=== PATIENT | male | born 1960 | race Caucasian/White ===

== ENCOUNTER 2017-06-22 13:11 | Emergency (ER) | payer SELFPAY ==
[2017-06-22 13:18] VITALS: BP 129/84; PULSE 92; RESP 18; TEMP 98.2; O2SAT 98
--- NOTE | 2017-06-22 14:09 | EDPHY ---
H & P Time Seen by Provider: 06/22/17 13:37 HPI/ROS: CHIEF COMPLAINT: Back pain HISTORY OF PRESENT ILLNESS: 56-year-old male presents to the emergency department the with history of chronic back pain is requesting prescription for prednisone. The patient states that he develops flare-ups of pain "2 or 3 times a year and "and is requesting prednisone. Patient was on prednisone about 4 months ago. He denies any numbness or tingling or feelings of weakness in his lower legs. No urinary symptoms. No chest pain or difficulty breathing. No headache. No known injury or trauma. REVIEW OF SYSTEMS: Constitutional: No fever, no chills. Eyes: No double or blurry vision. ENT: No sore throat. Respiratory: No cough, no shortness of breath. Cardiac: No chest pain. Gastrointestinal: No abdominal pain, vomiting or diarrhea. Genitourinary: No dysuria. Musculoskeletal: Back pain as above. No neck pain. Skin: No rashes. Neurological: No headache. Past Medical/Surgical History: Chronic back pain Social History: Single Smoking Status: Heavy smoker Physical Exam: General Appearance: Alert, no distress. Eyes: Pupils equal and round. Extraocular motions are all intact. ENT: Mouth: Mucous membranes moist. Respiratory: No wheezing, rhonchi, or rales, lungs are clear to auscultation. Cardiovascular: Regular rate and rhythm. Gastrointestinal: Abdomen is soft and nontender, no masses, no rebound or guarding, bowel sounds normal. Neurological: Alert and oriented x 3, cranial nerves II through XII grossly intact Skin: Warm and dry, no rashes. Musculoskeletal: Nontender to palpate along the cervical, thoracic or lumbar spine. Neck is supple. Straight leg raise is negative bilaterally. Reflexes are 2+ and equal for lower extremities bilaterally. Normal gait. Extremities: Full range of motion and no peripheral edema. Psychiatric: Patient is oriented X 3, there is no agitation. Constitutional: Initial Vital Signs Temperature (C) 36.8 C 06/22/17 13:14 Heart Rate 92 06/22/17 13:14 Respiratory Rate 18 06/22/17 13:14 Blood Pressure 129/84 H 06/22/17 13:14 O2 Sat (%) 98 06/22/17 13:14 O2 Delivery Mode Room Air Allergies/Adverse Reactions: No Known Allergies Allergy (Verified 06/22/17 13:13) Home Medications: Medication Instructions Recorded Cyclobenzaprine [Flexeril] 10 mg PO TIDPRN PRN #12 tab 06/22/17 Medical Decision Making ED Course/Re-evaluation: 56-year-old male presents with chronic low back pain. He has received crusting taper dose of prednisone. He was given also follow-up information for on-call neurosurgeon. He does typically go to the [facility]. I do not see any indication for MRI of his lumbar spine. The patient had an MRI of his back about 2 years ago. Patient has no focal neurologic findings on examination. He is comfortable being discharged home. Differential Diagnosis: Back pain including but not limited to muscular pain, herniated disc, spine fracture, intra-abdominal causes and urinary tract infection. Departure - Departure Disposition: Home, Routine, Self-Care Clinical Impression: Back pain Qualifiers: Back pain location: low back pain Chronicity: acute Back pain laterality: left Sciatica presence: without sciatica Qualified Code(s): M54.5 - Low back pain Condition: Good Instructions: Acute Low Back Pain (ED), Back Pain (ED) Additional Instructions: Prednisone as directed. Flexeril as needed for muscular spasm. Return to the emergency department if you developed bowel or bladder incontinence, numbness or tingling or feelings of weakness in her lower legs, or if you feel worse in any way. Referrals: Katy Emmanuel DO [Doctor of Osteopathy] - 2-3 days, call for appt. ( Neurosurgeon on-call) Prescriptions: Cyclobenzaprine [Flexeril] 10 mg PO TIDPRN PRN #12 tab PRN Reason: P.r.n. spasm
== END 2017-06-22 14:32 | disposition home or self-care (01) ==
DX: M54.5 Low back pain (principal); F17.200 Nicotine dependence, unspecified, uncomplicated

== ENCOUNTER 2018-05-23 07:44 | Emergency (ER) | payer MEDICAID, OTHER ==
--- NOTE | 2018-05-23 08:15 | EDPHY ---
H & P Stated Complaint: back pain Time Seen by Provider: 05/23/18 08:02 - Personal History Current Tetanus/Diphtheria Vaccine: Yes Current Tetanus Diphtheria and Acellular Pertussis (TDAP): Yes - Medical/Surgical History Hx Asthma: No Hx Chronic Respiratory Disease: No Hx Diabetes: No Hx Cardiac Disease: No Hx Renal Disease: No Hx Cirrhosis: No Hx Alcoholism: No Hx HIV/AIDS: No Hx Splenectomy or Spleen Trauma: No Other PMH: PSH: T&A. PMH: dental caries, herniated disc L4-5 - Social History Smoking Status: Heavy smoker Constitutional: Initial Vital Signs Temperature (C) 36.6 C 05/23/18 07:52 Heart Rate 99 05/23/18 07:52 Respiratory Rate 16 05/23/18 07:52 Blood Pressure 121/79 H 05/23/18 07:52 O2 Sat (%) 96 05/23/18 07:52 O2 Delivery Mode Room Air Allergies/Adverse Reactions: No Known Allergies Allergy (Verified 05/23/18 07:51) Home Medications: Medication Instructions Recorded Tylenol 05/23/18 Medical Decision Making ED Course/Re-evaluation: CHIEF COMPLAINT: Neck pain HISTORY OF PRESENT ILLNESS: 57-year-old gentleman with chronic recurrent cervical disc problems. He fell on the ice a couple of days ago and is having some pain into his right trapezius. He denies any motor weakness. It is exactly same pain that he gets once or twice a year when he injured his neck. He usually gets seen down the [facility]. They usually prescribe a short course of steroids for him and gets better that is why he is here today. He denies any motor sensory deficits in the right upper extremity. He denies any fevers or chills. He denies any recent instrumentation of his neck. REVIEW OF SYSTEMS: A comprehensive 10 system review of systems is otherwise negative aside from elements mentioned in the history of present illness and medical decision making. PHYSICAL EXAM: HR, BP, O2 Sat, RR. Temp noted General Appearance: Alert, well hydrated, appropriate, and non-toxic appearing. Head: Atraumatic without scalp tenderness or obvious injury Eyes: Pupils equal, round, reactive to light and accommodation, EOMI, no trauma , no injection. Ears: Clear bilaterally, no perforation, normal landmarks Nose: Atraumatic, no rhinorrhea, clear. Throat: There is no erythema or exudates, no lesions, normal tonsils, mucus membranes moist. Neck: Supple, 2+ carotid upstroke, nontender, no lymphadenopathy. Respiratory: No retractions, no distress, no wheezes, and no accessory muscle use. Lungs are clear to auscultation bilaterally. Cardiovascular: Regular rate and rhythm, no murmurs, rubs, or gallops. Bilateral carotid, radial, dorsalis pedis, and posterior tibial pulses intact. Good capillary refill all extremities. Gastrointestinal: Abdomen is soft, nontender, non-distended, no masses, no rebound, no guarding, no peritoneal signs. Musculoskeletal: Normal active ROM of all extremities, atraumatic. Neurological: Alert, appropriate, and interactive. The patient has normal DTRs and non-focal cranial nerves, motor, sensory, and cerebellar exam. Skin: No rashes, good turgor, no nodules on palpation. Past medical history: Chronic neck and back problems Past surgical history: Noncontributory Family history: Noncontributory Social history: Single, does not abuse tobacco drugs or alcohol DIFFERENTIAL DIAGNOSIS: Includes but is not limited to: Musculoskeletal pain, musculoskeletal strain, muscle tear, cervical disc herniation, nerve impingement MEDICAL DECISION MAKING: This patient has a mild recurrence of what he calls a herniated disc in his right lower neck that radiates to his right trapezius. It usually is resolved well with just some prednisone for a week. I have given him prednisone for 1 week. [facility] has any [facility] or does not resolve properly. Departure - Departure Disposition: Home, Routine, Self-Care Clinical Impression: Neck pain Condition: Good Instructions: Neck Pain (ED) Referrals: NONE *PRIMARY CARE P,. [Primary Care Provider] - As per Instructions
[2018-05-23 08:20] VITALS: BP 120/75
== END 2018-05-23 08:21 | disposition home or self-care (01) ==
DX: M50.10 Cervical disc disorder with radiculopathy, unspecified cervical region (principal); W00.0XXA Fall on same level due to ice and snow, initial encounter; Y92.9 Unspecified place or not applicable; F17.200 Nicotine dependence, unspecified, uncomplicated

== ENCOUNTER 2018-08-05 10:27 | Emergency (ER) | payer OTHER ==
[2018-08-05 10:33] VITALS: BP 122/75
--- NOTE | 2018-08-05 10:51 | EDPHY ---
H & P Time Seen by Provider: 08/05/18 10:36 HPI/ROS: CLINICAL IMPRESSION: Acute on chronic neck pain ASSESSMENT/PLAN: 57-year-old male with known degenerative changes to the cervical spine and lumbar spine presents to the emergency department requesting a steroid taper to help with an exacerbation of neck pain. 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 He is planning to move to [facility] in the coming weeks and plans to pursue surgery with a neurosurgeon [place] through the [place]. He does not have a local neurosurgeon and does not want to referral. He endorses some weakness and pain in the left arm but reports that he gets this from time to time and does not want imaging today. No associated headache, dizziness, vertigo or fever. Nonfocal neurological exam. No midline neck pain. No suggestion of underlying meningitis, epidural abscess. Unable to rule out fracture from recent trauma as patient is refusing x-rays. He was given a prednisone taper and encouraged to follow up with his neurosurgeon in [place]. Low threshold for return to ED sooner as outlined and discharge papers and person. DIFFERENTIAL DX: Neck pain includes but not limited to acute C-spine fracture, C-spine subluxation, herniated disc, meningitis, epidural abscess, spinal stenosis ED PROCEDURES: See lab and/or imaging results below CHIEF COMPLAINT: Neck pain, prescription refill HPI: 57-year-old male presents to the emergency department with acute on chronic neck pain. Patient reports that he has known C-spine stenosis with herniated discs, plans to pursue surgery with neurosurgeon in [facility] system. 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 He also states he slipped on the ice and had a fall several weeks ago. He does not want to have x-rays, has had MRIs and states from time to time his arm will become weak with increased neck pain. He is requesting a steroid taper to help with this. No reported headache, dizziness, vertigo, fever, significant or severe weakness of the arm or loss of sensation that is new or different. He is right-hand dominant. He does not have a local neurosurgeon and prefers to receive all of his care in [place] where he plans to move very soon. PAST MEDICAL HISTORY: Chronic degenerative changes of the cervical spine and lumbar spine, dental caries See triage summary and nurse notes for addition applicable history Pertinent Past Surgical History: None reported Family History: Noncontributory Social History: Daily smoker REVIEW OF SYSTEMS: A full 10 point review of systems was negative except for those mentioned in HPI. PHYSICAL EXAM: General Appearance: Alert, oriented, appropriate, cooperative, NAD, well hydrated, non-toxic appearing, VSS, no hypoxia. Neck: Supple, nontender, no lymphadenopathy, no midline pain, pain to palpation of the lateral paraspinal muscles and left trapezius, FROM, no meningismus. Respiratory: There are no retractions, lungs are clear to auscultation. Musculoskeletal: Full range of motion of upper extremities. Adult Secondary Education Instructor strength is slightly decreased on the left 4/5 compared to 5/5 on the right. Trapezius DTRs intact bilaterally. Patient endorses intermittent paresthesias of the thumb and 2nd digit on the left hand but is able to approximate thumb to 2nd digit without difficulty. No focal neurovascular deficit MEDICAL DECISION MAKING: Patient was seen independently. Secondary supervising physician at time of evaluation was: Dr. Pham. Diagnosis: Acute on chronic neck pain . New, requires workup Summary: See Assessment and Plan for summary of ED visit Patient Progress: Stable . Smoking Status: Heavy smoker Constitutional: Initial Vital Signs Heart Rate 83 08/05/18 10:29 Respiratory Rate 16 08/05/18 10:29 Blood Pressure 122/75 H 08/05/18 10:29 O2 Sat (%) 97 08/05/18 10:29 O2 Delivery Mode Room Air Allergies/Adverse Reactions: No Known Allergies Allergy (Verified 08/05/18 10:33) Home Medications: Medication Instructions Recorded predniSONE 20 mg PO DAILY #24 tablet 08/05/18 MDM/Departure - Depart Disposition: Home, Routine, Self-Care Clinical Impression: Neck pain on left side Condition: Good Instructions: Cervical Strain (ED) Additional Instructions: DISCHARGE INSTRUCTIONS FROM YOUR DOCTOR Thank you for visiting our emergency department today. Please keep in mind that discharge from the emergency department does not mean that there is nothing wrong - it simply means that we have not identified an emergency condition that requires further evaluation or treatment in the hospital. You should always plan to follow up with primary care for re-evaluation of your condition in the next 2-3 days. If you have been referred to a specialist, please call as soon as possible (today or tomorrow) to schedule your follow up appointment at the appropriate time. A PRESCRIPTION FOR A STEROID TAPER WAS GIVEN. PLEASE TAKE THIS DIRECTED WITH FOOD AND A LARGE GLASS OF WATER. PLEASE FOLLOW-UP WITH YOUR NEUROSURGEON IN [place]. RETURN TO THE EMERGENCY DEPARTMENT FOR INCREASED PAIN, WORSENING NUMBNESS OR WEAKNESS OF THE LEFT ARM, FEVER OR CHILLS, OR ANY OTHER CONCERNS. People present with illnesses and injuries in different ways, and it is always possible that we have missed something. You may always return for re-evaluation if symptoms worsen or if they are not improving or if you develop new/different symptoms. Again, thank you for choosing our emergency department. We hope that you feel better. Prescriptions: predniSONE 20 mg PO DAILY #24 tablet Referrals: NONE *PRIMARY CARE P,. [Primary Care Provider] - As per Instructions
== END 2018-08-05 10:55 | disposition home or self-care (01) ==
DX: M54.2 Cervicalgia (principal); W00.0XXA Fall on same level due to ice and snow, initial encounter; Y92.9 Unspecified place or not applicable; Y93.9 Activity, unspecified; Y99.9 Unspecified external cause status

== ENCOUNTER 2018-09-08 09:39 | Emergency (ER) | payer OTHER ==
--- NOTE | 2018-09-08 10:04 | EDPHY ---
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 No loss of conscious and no direct trauma to his cervical spine however he states that this triggered new onset paresthesias left upper extremity. This will commonly the occur for the patient if there is a new trauma or twisting motion. The paresthesias are still present in his left upper extremity feels subjective weakness PRIMARY CARE PROVIDER: [facility] REVIEW OF SYSTEMS: 10 systems reviewed and negative with the exception of the elements mentioned in the history of present illness PAST MEDICAL/SURGICAL HISTORY: Chronic degenerative changes cervical spine lumbar spine. no relevant medical/surgical history SOCIAL HISTORY: Daily tobacco abuse PHYSICAL EXAM 1) GENERAL: Well-developed, well-nourished, alert and oriented. Appears to be in no acute distress. Answering questions appropriately. Observed ambulating through the emergency department with a stable steady gait, smiling. 2) HEAD: Normocephalic, atraumatic 3) HEENT: Pupils equal, round, reactive to light bilaterally. Negative Horners. Nasopharynx, oropharynx, clear. No deformity or angulation of nose. No septal hematoma. No rhinorrhea. No oral trauma. Ears bilaterally with normal tympanic membranes. No hemotympanum. No fluid or blood in the external auditory canal. No raccoon eyes. No Trujillo sign. Teeth are normally aligned with no gross malocclusion, TMJ bilaterally nontender, facial bones nontender including the zygomatic arch, maxilla mandible. 4) NECK: No cervical collar is on. Posterior cervical spine is nontender, no stepoff, no effusion. Full range of motion which does not elicit any midline cervical spine pain, no posterior midline tenderness, no step-off. 5) LUNGS: Clear to auscultation bilaterally, no wheezes, no rhonchi, no retractions. No obvious signs of trauma. No chest wall pain. No flaring, no grunting. Moving symmetrically. No crepitus. 6) HEART: [Regular rate and rhythm, 7) ABDOMEN: No guarding, no rebound, no focal tenderness, no peritoneal signs, no signs of trauma, no ecchymosis 8) MUSCULOSKELETAL: Moving all extremities, no focal areas of tenderness, no obvious trauma. 9) BACK: No midline vertebral tenderness, no fluctuance, no step-off, no obvious trauma, no visual or palpable abnormality. 10) SKIN: No laceration. No abrasion 11) NEURO: Awake, alert, and oriented to person, place and time. Answers questions appropriately. There were no obvious focal neurologic abnormalities. No cerebellar dysfunction. Cranial nerves 2 through to 12 intact. Normal steady gait. Upper and lower extremities bilaterally with strength 5 / 5, reflexes 2+. DIFFERENTIAL DIAGNOSIS: In no particular order my differential includes but is not limited to deep space infection, cervico-cranial vessel disssection, muscle strain. - Personal History Current Tetanus/Diphtheria Vaccine: Unsure - Medical/Surgical History Hx Asthma: No Hx Chronic Respiratory Disease: No Hx Diabetes: No Hx Cardiac Disease: No Hx Renal Disease: No Hx Cirrhosis: No Hx Alcoholism: No Hx HIV/AIDS: No Hx Splenectomy or Spleen Trauma: No Other PMH: PSH: T&A. PMH: dental caries, herniated disc L4-5 - Social History Smoking Status: Heavy smoker Constitutional: Initial Vital Signs Temperature (C) 36.3 C 09/08/18 09:41 Heart Rate 81 09/08/18 09:41 Respiratory Rate 16 09/08/18 09:41 Blood Pressure 126/81 H 09/08/18 09:41 O2 Sat (%) 96 09/08/18 09:41 O2 Delivery Mode Room Air Allergies/Adverse Reactions: No Known Allergies Allergy (Verified 09/08/18 09:41) Home Medications: Medication Instructions Recorded predniSONE 20 mg PO DAILY #24 tablet 08/05/18 predniSONE [Prednisone] 20 mg PO DAILY #24 tablet 09/08/18 Medical Decision Making ED Course/Re-evaluation: 10:06 a.m.: Doubt vertebral vessel dissection. The patient does note new left upper extremity paresthesia since impacting his head few days ago. No loss of consciousness at that time no direct trauma to his cervical spine. Negative [place] head and C-spine decision-making tools however the presence of his chronic neck pain, new onset radiculopathy left upper extremity did recommend MRI from the emergency department. He is agreeable with this. Patient is planning an appointment with the neurosurgical team at the [place], [place] in October where he may be moving. 10:55 a.m.: Patient was re-evaluated with serial exams. The commercial tire service technician came to take the patient to the MRI suite however the patient is declining MRI at this time stating that he had prior commitments and places to be. He request a prednisone burst prescription which has previously assisted him. I believe him to have decision-making capacity. He has been informed that he is welcome to return to the ER at any point for re-evaluation. He is planning on going to [facility] in a few weeks for consultation with neurosurgical team at the [facility] there. Departure - Departure Disposition: Home, Routine, Self-Care Clinical Impression: Neck pain Condition: Good Instructions: Acute Neck Pain (ED), Chronic Neck Pain (DC) Additional Instructions: Return to the ER immediately if you experience new or worsening neck pain, dizziness, visual disturbance, double vision, lightheadedness, facial droop, or any other symptoms that concern you. Avoid deep tissue massage and chiropractic manipulation, until symptom-free, and cleared by your regular health care provider. Referrals: Cristian Ramos MD [Medical Doctor] - As per Instructions Prescriptions: predniSONE [Prednisone] 20 mg PO DAILY #24 tablet
[2018-09-08 11:07] VITALS: BP 121/76
== END 2018-09-08 11:07 | disposition home or self-care (01) ==
DX: M54.2 Cervicalgia (principal); W00.0XXA Fall on same level due to ice and snow, initial encounter; G89.29 Other chronic pain; M48.02 Spinal stenosis, cervical region; F17.200 Nicotine dependence, unspecified, uncomplicated

== ENCOUNTER 2018-11-30 17:34 | Emergency (ER) | payer OTHER | END 2018-11-30 18:46 | disposition home or self-care (01) | DX: M50.121 Cervical disc disorder at C4-C5 level with radiculopathy (principal); M48.02 Spinal stenosis, cervical region; S90.32XA Contusion of left foot, initial encounter; W22.8XXA Striking against or struck by other objects, initial encounter ==

== ENCOUNTER 2019-01-26 20:54 | Emergency (ER) | payer OTHER | END 2019-01-26 21:21 | disposition home or self-care (01) ==